=== PATIENT | male | born 1960 | race Two or more races ===

== ENCOUNTER 2016-08-16 18:25 | Emergency (ER) | payer OTHER ==
[2016-08-16 18:32] VITALS: BP 134/83
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
[2016-08-16] MEDS ORDERED: HYDROCODONE/ACETAMINOPHEN 5-325 MG TABLET PO ONE (20:43)
== END 2016-08-16 20:45 | disposition home or self-care (01) ==
LOC: ER 18:25
DX: S16.1XXA Strain of muscle, fascia and tendon at neck level, initial encounter (principal); S39.012A Strain of muscle, fascia and tendon of lower back, initial encounter; V49.9XXA Car occupant (driver) (passenger) injured in unspecified traffic accident, initial encounter; R25.2 Cramp and spasm; F17.200 Nicotine dependence, unspecified, uncomplicated
CPT/HCPCS: 72050; 99283